=== PATIENT | female | born 1960 | race Caucasian/White ===

== ENCOUNTER 2017-04-16 17:08 | Inpatient (IN) ==
[2017-04-16 18:04] LABS: Basophils # 0.1 10*3/uL (0.0-0.2); Basophils % 0.7 % (0.0-0.8); Eosinophils # 0.2 10*3/uL (0.0-0.87); Eosinophils % 1.9 % (0.00-10.9); Hematocrit 41.6 VOL% (35.7-47.0); Hemoglobin 13.6 GM/DL (12.0-16.0); Immature Granulocytes % 0.4 %; Immature Granulocytes Absolute 0.04 #; Lymphocytes # 0.5 10*3/uL (1.4-4.0); Lymphocytes % 5.8 % (21.3-54.2); Mean Corpuscular HGB Conc 32.7 GM/DL (32-36); Mean Corpuscular Hemoglobin 25 PG (27-34); Mean Corpuscular Volume 77.8 FL (87-102); Mean Platelet Volume 10.3 FL (9.6-12.0); Monocytes # 0.6 10*3/uL (0.11-0.8); Monocytes % 6.5 % (1.7-12.7); Neutrophils # 7.6 10*3/uL (1.4-7.4); Neutrophils % 84.7 % (38.7-73.9); Platelet Count 362 T/CUMM (130-400); Red Blood Count 5.35 MC/CUMM (3.8-5.5); Red Cell Distribution Width 14.5 % (9.3-17.3)
[2017-04-16 18:14] LABS: INR 1.2; PT Patient Result 12.4 SECS; Partial Thromboplastin Time 30.7 SECS (0-40)
--- NOTE | 2017-04-16 18:18 | CT Report ---
CT head/brain wo con INDICATION: Stroke/Hemiparesis The total DLP is 1995 mGy*cm. COMPARISON: None available Technique: Serial axial tomographic images of the brain were obtained without the use of intravenous contrast. Dose reduction: This CT exam was performed using one or more of the following dose reduction techniques: Automated exposure control, automated adjustment of the mA and/or KV according to patient size, or use of iterative reconstruction technique. Findings: Extensive abnormality is evident within the brain parenchyma. There is marked edema throughout the right more so than left cerebral hemisphere with effacement of the sulci. Along the anterior intracranial fossa, there is a large area of focal hypodensity measuring up to 5.2 x 3.2 cm in the axial plane which is concerning for metastatic disease or abscess. This crosses the midline with suggestion of marked right to left midline shift of up to 1.6 cm (axial image 14). There is similar focal hypodensity within the right parietal region measuring up to 5.2 x 2.2 cm in the axial plane which may represent dilatation of the posterior horn of the right lateral ventricle. There is similar hypodensity within this region suspicious for an infiltrating process such as malignancy or sequela of infection. Additionally, there is minimal vague hyperdensity suggested within the right parietal lobe along the periventricular white matter which may represent posttreatment changes or sequela of chronic infection/remote trauma but is otherwise indeterminant. Lack of intravenous contrast limits evaluation. Basilar cisterns are patent. There is no evidence of transforaminal herniation at this time. Mild dilatation of the temporal horns of the lateral ventricles are noted and a degree of subependymal flow of CSF and/or hydrocephalus is suggested. Fourth ventricle is however not dilated. The visualized paranasal sinuses, mastoid air cells and middle ear cavities are predominantly clear. The included orbits and their contents appear within normal limits. The visualized osseous structures and overlying soft tissues of the skull and face demonstrate no acute abnormality. IMPRESSION: Extensive intracranial abnormalities suspicious for intracranial metastatic disease or multifocal intracranial abscesses in this patient with known malignancy. There is marked cerebral edema within both hemispheres, more so on the right, with right to left midline shift due to mass effect. Additional findings are concerning for transependymal flow of CSF. Postcontrast imaging or MRI imaging of the brain without and with contrast may be helpful for further evaluation if clinically indicated. Close clinical and imaging follow-up is recommended. Critical findings discussed with Dr. Gonzalez via telephone at 6:10 PM on the day of the examination. PROCEDURE INTERPRETED AT [facility] DEPARTMENT OF RADIOLOGY Final Report Signed by: Evelio Rodarte
[2017-04-16 18:32] LABS: Alanine Aminotransferase 17 U/L (13-56); Albumin 3.7 G/DL (3.4-5.0); Alkaline Phosphatase 179 U/L (45-117); Aspartate Amino Transferase 34 U/L (0-37); Blood Urea Nitrogen 26 MG/DL (7-18); Calcium 10.8 MG/DL (8.5-10.1); Glucose 126 MG/DL (74-106); Potassium 4.2 MMOL/L (3.5-5.1); Sodium 136 MMOL/L (136-145); Total Protein 8.4 G/DL (6.4-8.3); Troponin I Only < 0.015 NG/ML (0.00-0.045)
--- NOTE | 2017-04-16 18:32 | EKG Report ---
Stationary ECG Study [facility] ER Test Date: 04/16/2017 6:31:43 PM Pat Name: KASSIDY BELTRAN Department: Room: Gender: F Miter Cutter: : 1960 Requested by: Bonny Cartagena Order Number: [id number] Reading MD: SILVANA LEMUS Intervals [place] Rate: 99 P: 5 NH: 126 QRS: 63 QRSD: 97 T: 30 QT: 342 QTc: 398 Interpretive Statements SINUS RHYTHM NONSPECIFIC T-WAVE ABNORMALITY Electronically Signed On 04-16-17 18:51:22 CDT by SILVANA LEMUS [email or web address]
[2017-04-16] MEDS ORDERED: DEXAMETHASONE 4 MG/1 ML VIAL IV STA (19:02)
[2017-04-16] MEDS ORDERED: DEXAMETHASONE 10 MG/1 ML VIAL ONE (19:02)
--- NOTE | 2017-04-16 19:10 | Emergency Department Note ---
I, Lupis Reveles, am scribing for, and in the presence of, Emile Gonzalez MD 19: 03. ILisa Charles R, MD, personally performed the services described in this documentation, ascribed by Lupis Reveles in my presence, and it is both accurate and complete . Arrival - Arrival Chief Complaint: Weakness Stated Complaint: pain,slumped over, poss stroke per pain center ED Nursing Triage Note: PT TO TRIAGE VIA WC WITH C/O HAVING POSSIBLE STROKE . LAST KNOWN WELL TIME AT 1400 TODAY. PT IS HAVING HAVING LEFT SIDED WEAKNESS. CONFUSION. NO FACIAL DROOP NOTED. PT WAS AT PAIN CENTER AND WAS SENT HERE FROM THERE. Mode of Arrival: Wheelchair Limitations: Altered Mental Status Source: Family (son) Time Seen by Provider: 04/16/17 18:21 - History of Present Illness HPI Narrative: Pt is a 56 y/o female who was at Pain Clinic and sent to ED for further evaluation of possible stroke due to left sided weakness and confusion. According to clinic, last nml baseline was around 1400 today. However, pt had CT head today in ED, that shows her lung CA has become metastatic into her brain. Pt states she does have a BENAVIDES in ED but has inappropriate behavior and has great confusion. Son is in ED with states he does have power of civil litigation attorney in pt's affairs. He reports last visit with Dr. Ruano was to undergo tx for her lung CA, but pt denied wanting to and stated she wanted to let "nature take its course." He is still drawn to this idea of pt's, stating he doesn't think she will go along with future treatment. Onset (ago): hour(s) Consistency: constant Severity: severe Severity scale (1-10): 10 Quality: aching Allergies/Adverse Reactions: Allergies Allergy/AdvReac Type Severity Reaction Status Date / Time codeine Allergy Severe RASH Verified 04/16/17 17:29 latex Allergy Severe ITCHING Verified 04/16/17 17:29 morphine Allergy Severe RASH Verified 04/16/17 17:29 aspirin AdvReac Mild Gastrointestinal Verified 04/16/17 17:29 Upset hydrocodone [From Vicoprofen] AdvReac Mild Vomiting Verified 04/16/17 17:29 ibuprofen AdvReac Mild Vomiting Verified 04/16/17 17:29 Home Medications: Home Medications Medication Instructions Recorded Confirmed Type Gabapentin 300 mg PO QID 02/15/15 04/24/16 History Lisinopril 40 mg PO DAILY 02/15/15 04/24/16 History Pantoprazole Tab [Protonix Tab] 40 mg PO DAILY 02/15/15 04/24/16 History Rosuvastatin Calcium [Crestor] 40 mg PO DAILY 02/15/15 04/19/16 History hydroCHLOROthiazide 25 mg PO DIRECTED 02/15/15 04/24/16 History [Hydrochlorothiazide] oxyCODONE/ACETAMINOPHEN 5-325 2 tablet PO Q4H PRN #60 tablet 03/17/15 04/19/16 Rx [Percocet 5-325] Citalopram [CeleXA] 10 mg PO DAILY 10/25/15 04/24/16 History HYDROmorphone TAB [Dilaudid Tab] 2 mg PO BID PRN 10/25/15 04/24/16 History Ipratropium/Albuterol Inhaler 1 puff INH QID 10/25/15 04/24/16 History [Combivent Respimat Inhaler] Potassium Chloride Cap/Tab [K Dur] 20 meq PO BID 10/25/15 04/24/16 History Promethazine Tab [Phenergan Tab] 25 mg PO Q6H PRN 10/25/15 04/19/16 History Review of System - Review of System ROS unobtainable: due to mental status Medical,Surgical,& Family Hx - Medical History Cardio: History of: Hypertension Psychological: History of: Depression Neurology: No history of: Seizures HEENT: History of: Eye Problem (glasses), Dental Problems (dentures upper and lowers) Rheumatology: History of;: Rheumatoid Arthritis Respiratory: History of: Bronchitis, COPD, Pneumonia, Lung Cancer Gastrointestinal: History of: GERD, Gastrointestinal Bleed (at 13 or 14 yrs old) Musculoskeletal: History of: Back/Neck Problems (lumbar4 -5 william in back; 5 yrs ago), Osteoporosis, Musculoskeletal Problems (william left leg JUN 2014) Reproductive: History of: Complication (highh risk) Other: No history of: Anesthesia Reactions - Surgical History Abdominal Surgeries: Surgical HX of: Abdominal Surgery, Colonoscopy, EGD Reproductive Surgeries: Surgical HX of;: Section (2), Gynecologic Surgery, Hysterectomy Orthopedic Surgeries: Surgical HX of;: Implanted Devices (william in back and left leg), Orthopedic Surgery - Family History Family History: Reports;: Family Cancer (paternal greatgrandmother), Family Heart Disease, Family Hypertension (mother brother sisters), Family Stroke ( mother sister) - Social History Smoking Status: Current every day smoker Frequency of Alcohol Use: None Type of Drug Use: None Marital Status: Single Lives With:: Alone Functional capacity: independent ambulation Exam Vital Signs: Vital Signs Temperature 98.6 F 04/16/17 17:36 Pulse Rate 100 H 04/16/17 18:30 Respiratory Rate 22 04/16/17 18:30 Blood Pressure 116/84 04/16/17 18:30 O2 Sat by Pulse Oximetry 97 04/16/17 18:30 - General General appearance: alert, other (altered, temporal wasting) - Head Head exam: Present: atraumatic, normocephalic - Eye Eye exam: Present: PERRL, EOMI, other (sunken orbits, bilaterally) - ENT ENT exam: Present: mucous membranes dry. Absent: mucous membranes moist - Neck Neck exam: Present: full ROM, trachea midline - Chest Chest inspection: Present: symmetric chest wall rise - Respiratory Respiratory exam: Present: rhonchi (scatered rhonchi, bilaterally). Absent: respiratory distress - Cardiovascular Cardiovascular exam: Present: tachycardia, normal heart sounds - Extremities Exam Extremities exam: Present: full ROM. Absent: tenderness, pedal edema - Neurological Exam Neurological exam: Present: alert, CN II-XII intact, other (left side weaker; inappropriate behavior). Absent: oriented X3 - Skin Skin exam: Present: warm, dry Course - Consultations Consultation #1: Spoke to Dr. Ruano relayed information about the CT findings. Spoke to the family about this they wanted comfort care measurement one her admitted for treatment give her IV steroids. Dr. 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
[2017-04-16 19:26] LABS: Apearance,Urine CLOUDY (Clear); Bacteria,Urine Moderate /HPF (Few); Bilirubin,Urine Negative (Negative); Blood, Urine Moderate mg/dL (Negative); Glucose,Urine (UA) Negative (Negative); Ketones,Urine 5 mg/dL (Negative); Mucus,Urine Many /LPF (Occasional); Nitrite,Urine Negative (Negative); Protein,Urine 100 MG/DL; RBC,Urine 9 /HPF (0-4); Urine Color Amber (Yellow); Urine Specific Gravity 1.028 (1.001-1.035); WBC,Urine 12 /HPF (0-6)
[2017-04-16 19:31] LABS: Barbiturates Screen,Urine Negative (Negative); Benzodiazepines Screen,Urine Negative (Negative); Cannabinoid Screen,Urine Negative (Negative); Opiate Screen,Urine Positive (Negative); Phencyclidine Screen,Urine Negative (Negative)
[2017-04-16] MEDS ORDERED: chlorproMAZINE INJ 25 MG in SODIUM CHLORIDE 0.9% 100 ML IV PRN (20:48)
[2017-04-16] MEDS ORDERED: LACTULOSE 20 GM/30 ML UDCUP PO PRN (20:48)
[2017-04-16] MEDS ORDERED: chlorproMAZINE 25 MG TABLET PO PRN (20:48)
[2017-04-16] MEDS ORDERED: ALUMINUM/MAGNES/SIMETH MAX STR 30 ML UDCUP PO PRN (20:48)
[2017-04-16] MEDS ORDERED: chlorproMAZINE INJ 50 MG in SODIUM CHLORIDE 0.9% 100 ML IV PRN (20:48)
[2017-04-16] MEDS ORDERED: ACETAMINOPHEN 325 MG TABLET PO PRN (20:48)
[2017-04-16] MEDS ORDERED: guaiFENesin 200 MG/10 ML UDCUP PO PRN (20:48)
[2017-04-16] MEDS ORDERED: ALPRAZolam 0.25 MG TABLET PO PRN (20:48)
[2017-04-16] MEDS ORDERED: LOPERAMIDE 2 MG CAPSULE PO PRN ×2 (20:48)
[2017-04-16] MEDS ORDERED: BENZTROPINE 2 MG/2 ML AMP IV PRN (20:48)
[2017-04-16] MEDS ORDERED: MYLANTA/LIDO VISC 2:1 300 ML BOTTLE SWISH/SWAL PRN (20:48)
[2017-04-16] MEDS ORDERED: diphenhydrAMINE CAP 25 MG CAPSULE PO PRN (20:48)
[2017-04-16] MEDS ORDERED: MYLANTA/LIDO VISC 2:1 300 ML BOTTLE SWISH/SPIT PRN (20:48)
[2017-04-16] MEDS ORDERED: PROMETHAZINE INJ 25 MG in SODIUM CHLORIDE 0.9% 50 ML IV PRN (20:48)
[2017-04-16] MEDS ORDERED: MAGNESIUM HYDROXIDE SUSP 30 ML UDCUP PO PRN (20:48)
[2017-04-16] MEDS ORDERED: TEMAZEPAM 7.5 MG CAPSULE PO PRN (20:48)
[2017-04-16] MEDS ORDERED: ALBUTEROL/IPRATROPIUM 3 ML NEB RESP TX PRN (20:48)
[2017-04-16] MEDS ORDERED: ONDANSETRON 4 MG/2 ML VIAL IV PRN (20:48)
[2017-04-16 21:00] LABS: Basophils # 0.1 10*3/uL (0.0-0.2); Basophils % 0.6 % (0.0-0.8); Eosinophils # 0.2 10*3/uL (0.0-0.87); Eosinophils % 1.7 % (0.00-10.9); Hematocrit 37.3 VOL% (35.7-47.0); Hemoglobin 12.1 GM/DL (12.0-16.0); Immature Granulocytes % 0.3 %; Immature Granulocytes Absolute 0.03 #; Lymphocytes # 0.4 10*3/uL (1.4-4.0); Lymphocytes % 4.2 % (21.3-54.2); Mean Corpuscular HGB Conc 32.4 GM/DL (32-36); Mean Corpuscular Hemoglobin 26 PG (27-34); Mean Corpuscular Volume 78.5 FL (87-102); Mean Platelet Volume 9.6 FL (9.6-12.0); Monocytes # 0.4 10*3/uL (0.11-0.8); Monocytes % 4.8 % (1.7-12.7); Neutrophils # 7.6 10*3/uL (1.4-7.4); Neutrophils % 88.4 % (38.7-73.9); Platelet Count 272 T/CUMM (130-400); Red Blood Count 4.75 MC/CUMM (3.8-5.5); Red Cell Distribution Width 14.4 % (9.3-17.3); White Blood Count 8.6 T/CUMM (4-12)
[2017-04-16 21:18] LABS: Alanine Aminotransferase 15 U/L (13-56); Albumin 3.1 G/DL (3.4-5.0); Alkaline Phosphatase 142 U/L (45-117); Aspartate Amino Transferase 32 U/L (0-37); Bilirubin,Total < 0.39 MG/DL (0.2-1.0); Blood Urea Nitrogen 26 MG/DL (7-18); Calcium 9.8 MG/DL (8.5-10.1); Glucose 115 MG/DL (74-106); Magnesium 2.1 MG/DL (1.8-2.4); Osmolality,Calculated 278.8 MOS/KG (273-304); Potassium 4.3 MMOL/L (3.5-5.1); Sodium 137 MMOL/L (136-145); Uric Acid 3.7 MG/DL (2.6-6.0)
[2017-04-16 21:25] LABS: Eosinophils 2 % (0-10); Lymphocytes 8 % (20-55); Platelet Estimate Normal; Segmented Neutrophils 86 % (50-85); Total Cells Counted 100
[2017-04-16] MEDS: SODIUM CHLORIDE 0.9% 1,000 ML IV SCH (21:43)
[2017-04-17] MEDS: traMADol 50 MG TABLET PO PRN ×2 (04:31→15:13)
--- NOTE | 2017-04-17 07:27 | Oncology History&Physical ---
History of Present Illness Chief complaint: Brain metastases History of present illness: Ms. Edwards is an unfortunate 56 year old female with newly diagnosed brain metastases from squamous cell carcinoma of the lung. Up until now she had stage IIIb adenocarcinoma of the lung and had responded well to chemotherapy. Ms. 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 She was initially diagnosed as having lung cancer March 02, 2015. It was not resectable. She was treated with chemotherapy with good response using Abraxane and carboplatin. Her last course of chemotherapy was given August 25, 2015 and it consisted of Abraxane and carboplatin and it was day 8 of course #8. The Abraxane dose was 150 mg on day 1 and 8 and the carboplatin dose was 350 mg on day 1 of each course. She was treated with radiation therapy to the primary tumor in her left upper lobe and she completed it August 11, 2016. It was initiated May 17, 2016. She would qualify for Opdivo or Tecentric 1200 mg every 3 weeks but she also would qualify at this point for Alimta, carboplatin and Keytruda. Her last PET scan was December 18, 2016 and it did not demonstrate any tumor beyond the thorax. She has been having a lot of back and leg pain from previous injuries and has been seen at the pain clinic and I thought she was excessively sedated but it turns out that a lot of her lethargy was due to the new brain metastases. She has more than one brain metastasis. Past medical history: Allergies: She is allergic to ibuprofen, morphine, hydrocodone, aspirin and codeine. Her past medical history is positive for severe COPD as well as for back pain and arthritis, hypertension, diabetes mellitus, hyperlipidemia, depression, GERD , anxiety, osteoporosis and asthma. Family history is positive for hypertension in her brother, stroke and hypertension in her mother and hypertension, blood cancer and stroke and a sister. Social history she has been a heavy smoker in the past and a light smoker more recently. She does not use alcohol. ROS Gen.: Positive for increasing fatigue, generalized weakness and malaise. Eyes: No history of chronic disease, infections or visual loss. ENT: No history of chronic infections, epistaxis, chronic sore throat Lungs: Positive for severe COPD as well as for asthma and bronchospasm and painful respiration. Cardiovascular: No history of angina, coronary artery disease, congestive heart failure, cardiovascular surgery or DVT/VTE GI: No history of upper or lower GI bleeding, melena, dysphagia, odynophagia, liver disease, gallbladder disease or pancreatic disease. : No history of kidney stones, chronic kidney infections or hematuria. Musculoskeletal: No history of chronic bone or joint pain or focal muscle atrophy or bone or joint deformity. Neurologic: Positive for increasing memory impairment. She has been depressed and emotionally labile no history of seizures, convulsions or paralysis. Psychiatric: In the past. More recently she has had difficulty concentrating and difficulty communicating and has dysarthria. No history of chronic psychiatric illness or psychiatric medications. Lymphatic: No history of significant or long-term lymphadenopathy Hematologic: No history of anemia, bleeding disorders or blood dyscrasias or long-term elevation or depression white cell count or petechiae. Skin: No history of chronic skin infections or rashes or significant skin lesions. Physical examination: General: The patient is acutely ill. She is actually having a lot less difficulty with mentation and communication after being given large doses of corticosteroids. Eyes: Normal lids and conjunctivae. ENT: Poor dentition. Her oral mucosa and pharynx are normal. Her hearing is normal. Neck: Her trachea is midline and she has no neck masses. Lungs: Breath sounds are coarse throughout both lung henriquez but I hear few wheezes and no rubs, rales or rhonchi and she has a prolonged expiratory phase of respiration. No chest wall tenderness. Cardiovascular: Her heart rhythm is regular without murmur, gallop or rub. There is no jugular venous distention, clubbing, cyanosis or edema. Abdomen: She has no abdominal masses, organomegaly, distention, tenderness or ascites. Musculoskeletal: She has generalized muscle wasting and is generally weak. There is no focal muscle atrophy or bone or joint deformity. Neurologic: She has no focal neurologic deficits. Cranial nerves II through XII are intact. She may actually have a field cut to the left. Psychiatric: The patient is currently oriented to time, place, person and situation. Her affect is somewhat flat. Breasts: No breast masses or abnormalities by inspection. Nodes: No submandibular, cervical, supraclavicular or axillary adenopathy. Impression: Newly diagnosed brain metastases in a patient with past history of stage IIIb lung cancer: COPD: Emaciation, cachexia and malnutrition: Acute dehydration with elevated BUN and creatinine: I have discussed CODE STATUS with the patient and I have discussed hospice. The patient wants to consider chemotherapy and radiation so I am consulting Dr. Braxton King and will consider using Keytruda, carboplatin and Alimta. I have ordered B12 and folic acid on her. We will started today. Home Medications Medication Instructions Recorded Confirmed Type Gabapentin 300 mg PO QID 02/15/15 04/24/16 History Lisinopril 40 mg PO DAILY 02/15/15 04/24/16 History Pantoprazole Tab [Protonix Tab] 40 mg PO DAILY 02/15/15 04/24/16 History Rosuvastatin Calcium [Crestor] 40 mg PO DAILY 02/15/15 04/19/16 History hydroCHLOROthiazide 25 mg PO DIRECTED 02/15/15 04/24/16 History [Hydrochlorothiazide] oxyCODONE/ACETAMINOPHEN 5-325 2 tablet PO Q4H PRN #60 tablet 03/17/15 04/19/16 Rx [Percocet 5-325] Citalopram [CeleXA] 10 mg PO DAILY 10/25/15 04/24/16 History HYDROmorphone TAB [Dilaudid Tab] 2 mg PO BID PRN 10/25/15 04/24/16 History Ipratropium/Albuterol Inhaler 1 puff INH QID 10/25/15 04/24/16 History [Combivent Respimat Inhaler] Potassium Chloride Cap/Tab [K Dur] 20 meq PO BID 10/25/15 04/24/16 History Promethazine Tab [Phenergan Tab] 25 mg PO Q6H PRN 10/25/15 04/19/16 History Allergies Allergy/AdvReac Type Severity Reaction Status Date / Time codeine Allergy Severe RASH Verified 04/16/17 17:29 latex Allergy Severe ITCHING Verified 04/16/17 17:29 morphine Allergy Severe RASH Verified 04/16/17 17:29 aspirin AdvReac Mild Gastrointestinal Verified 04/16/17 17:29 Upset hydrocodone [From Vicoprofen] AdvReac Mild Vomiting Verified 04/16/17 17:29 ibuprofen AdvReac Mild Vomiting Verified 04/16/17 17:29 Medical,Surgical,& Family Hx - Medical History Cardio: History of: Hypertension Psychological: History of: Depression Neurology: No history of: Seizures HEENT: History of: Eye Problem (glasses), Dental Problems (dentures upper and lowers) Rheumatology: History of;: Rheumatoid Arthritis Respiratory: History of: Bronchitis, COPD, Pneumonia, Lung Cancer Gastrointestinal: History of: GERD, Gastrointestinal Bleed (at 13 or 14 yrs old) Musculoskeletal: History of: Back/Neck Problems (lumbar4 -5 william in back; 5 yrs ago), Osteoporosis, Musculoskeletal Problems (william left leg JUN 2014) Reproductive: History of: Complication (high risk) Other: History of: Cancer (metastatic lung stage 4) No history of: Anesthesia Reactions - Surgical History Abdominal Surgeries: Surgical HX of: Abdominal Surgery, Colonoscopy, EGD Reproductive Surgeries: Surgical HX of;: Section (2), Gynecologic Surgery, Hysterectomy Orthopedic Surgeries: Surgical HX of;: Implanted Devices (william in back and left leg), Orthopedic Surgery - Family History Family History: Reports;: Family Cancer (paternal greatgrandmother), Family Heart Disease, Family Hypertension (mother brother sisters), Family Stroke ( mother sister) - Social History Smoking Status: Current every day smoker Frequency of Alcohol Use: None Type of Drug Use: None Exam - Constitutional Vitals: Period Temp Pulse Resp BP Sys/Ball Pulse Ox Last 24 Hr 97.3 F-98.6 F 69-115 18-28 98-134/59-84 93-100 Results - Labs CBC & BMP: 04/16/17 20:51 04/16/17 20:51 Quality Measures - Stroke Onset of Symptoms Date: 04/16/17 Onset of Symptoms Time: 14:00 Presenting Symptoms: Left hemiparesis Symptom Onset Unknown: No
[2017-04-17] MEDS ORDERED: CYANOCOBALAMIN 1000 MCG/1 ML VIAL IM ONE (08:21)
[2017-04-17] MEDS ORDERED: DEXAMETHASONE 10 MG/1 ML VIAL IV SCH (09:00)
[2017-04-17] MEDS: FOLIC ACID 1 MG TABLET PO SCH (09:26)
[2017-04-17] MEDS: DEXAMETHASONE INJ 40 MG in SODIUM CHLORIDE 0.9% 50 ML IV SCH (09:27)
[2017-04-17] MEDS: PANTOPRAZOLE 40 MG TABLET PO SCH (09:27)
[2017-04-17] MEDS: oxyCODONE/ACETAMINOPHEN 5-325 MG TABLET PO PRN (10:37)
[2017-04-17] MEDS: SODIUM CHLORIDE 0.9% 1,000 ML IV SCH (10:38)
[2017-04-17] MEDS ORDERED: BACLOFEN 10 MG TABLET PO PRN (12:24)
[2017-04-17] MEDS ORDERED: oxyCODONE/ACETAMINOPHEN 5-325 MG TABLET PO PRN (12:24)
[2017-04-17] MEDS ORDERED: HYDROmorphone 2 MG TABLET PO PRN (12:24)
[2017-04-17] MEDS ORDERED: PROMETHAZINE 25 MG TABLET PO PRN (12:24)
[2017-04-17] MEDS ORDERED: PANTOPRAZOLE 40 MG TABLET PO SCH (12:30)
[2017-04-17] MEDS: hydroCHLOROthiazide 25 MG TABLET PO SCH (15:12)
[2017-04-17] MEDS: POTASSIUM CHLORIDE 20 MEQ TABLET PO SCH ×2 (15:12→20:50)
[2017-04-17] MEDS: GABAPENTIN 300 MG CAPSULE PO SCH ×3 (15:15→20:50)
[2017-04-17] MEDS: ALBUTEROL/IPRATROPIUM 3 ML NEB RESP TX SCH ×2 (17:53→19:01)
[2017-04-17] MEDS: CITALOPRAM 20 MG TABLET PO SCH (20:50)
[2017-04-18] MEDS: SODIUM CHLORIDE 0.9% 1,000 ML IV SCH (02:04)
[2017-04-18] MEDS: ALBUTEROL/IPRATROPIUM 3 ML NEB RESP TX SCH ×4 (07:06→19:27)
--- NOTE | 2017-04-18 07:53 | Oncology Progress Note ---
Oncology Subjective PN Interval history: Abrupt change in neurologic status due to newly diagnosed brain metastases: She has multiple brain metastases. I consulted radiation oncology. We need to discuss the patient's condition with her son but he is working and has not been available. We will continue to try to contact him. I think he favored hospice and I can understand why. He is having to keep his mother and I do not think he is going to be able to do this. Radiation oncology has been consulted. She complains of headaches today. I am checking her pain medications and will be certain to include parenteral narcotics for pain. Past history of stage IIIb squamous cell lung cancer: This is now become stage IV lung cancer which qualifies her for Alimta, carboplatin and Keytruda. She has been started on B12 and folic acid since we are considering that possibility. COPD: Her COPD is relatively stable. Emaciation, cachexia and malnutrition: Her appetite is poor. Acute dehydration with elevated BUN and creatinine: I have just ordered repeat lab work today and I am going to go ahead and adjust her IV fluid. Exam - Constitutional Vitals: Period Temp Pulse Resp BP Sys/Ball Pulse Ox Last 24 Hr 96.3 F-98.7 F 62-72 16-20 103-138/59-73 96-99 Results - Labs CBC & BMP: 04/16/17 20:51 04/16/17 20:51 Quality Measures - Stroke Onset of Symptoms Date: 04/16/17 Onset of Symptoms Time: 14:00 Presenting Symptoms: Left hemiparesis Symptom Onset Unknown: No
[2017-04-18] MEDS ORDERED: HYDROmorphone 2 MG/1 ML VIAL IV PRN (08:25)
[2017-04-18 08:27] LABS: Basophils % 0.1 % (0.0-0.8); Eosinophils # 0.1 10*3/uL (0.0-0.87); Eosinophils % 0.9 % (0.00-10.9); Hematocrit 34.6 VOL% (35.7-47.0); Hemoglobin 11.6 GM/DL (12.0-16.0); Immature Granulocytes % 0.6 %; Immature Granulocytes Absolute 0.06 #; Lymphocytes # 0.7 10*3/uL (1.4-4.0); Lymphocytes % 6.8 % (21.3-54.2); Mean Corpuscular HGB Conc 33.5 GM/DL (32-36); Mean Corpuscular Hemoglobin 26 PG (27-34); Mean Corpuscular Volume 77.8 FL (87-102); Mean Platelet Volume 10.2 FL (9.6-12.0); Monocytes # 0.7 10*3/uL (0.11-0.8); Monocytes % 6.7 % (1.7-12.7); Neutrophils # 8.3 10*3/uL (1.4-7.4); Neutrophils % 84.9 % (38.7-73.9); Platelet Count 294 T/CUMM (130-400); Red Blood Count 4.45 MC/CUMM (3.8-5.5); Red Cell Distribution Width 14.1 % (9.3-17.3); White Blood Count 9.8 T/CUMM (4-12)
[2017-04-18] MEDS: GABAPENTIN 300 MG CAPSULE PO SCH ×5 (09:03→20:24)
[2017-04-18] MEDS: PANTOPRAZOLE 40 MG TABLET PO SCH (09:03)
[2017-04-18] MEDS: POTASSIUM CHLORIDE 20 MEQ TABLET PO SCH ×2 (09:03→20:24)
[2017-04-18] MEDS: FOLIC ACID 1 MG TABLET PO SCH (09:03)
[2017-04-18 09:08] LABS: Albumin 2.9 G/DL (3.4-5.0); Bilirubin,Total 0.5 MG/DL (0.2-1.0); Calcium 9.6 MG/DL (8.5-10.1); Osmolality,Calculated 274.1 MOS/KG (273-304); Potassium 3.9 MMOL/L (3.5-5.1); Total Protein 6.6 G/DL (6.4-8.3)
[2017-04-18] MEDS: LISINOPRIL 20 MG TABLET PO SCH (09:22)
[2017-04-18] MEDS: DEXAMETHASONE INJ 40 MG in SODIUM CHLORIDE 0.9% 50 ML IV SCH (10:08)
[2017-04-18] MEDS: oxyCODONE/ACETAMINOPHEN 5-325 MG TABLET PO PRN (10:29)
[2017-04-18] MEDS: DEXT 5% NACL 0.45% KCL 20 MEQ 20 MEQ/1,000 ML BAG IV SCH (11:04)
[2017-04-18] MEDS ORDERED: SODIUM CHLORIDE 0.9% 1,000 ML IV SCH (13:30)
--- NOTE | 2017-04-18 13:59 | CT Report ---
CT head/brain wo con Indication: Decreased LOC Comparison: CT brain dated April 16, 2017 Technique: Multiple axial tomographic images of the brain were obtained without the use of intravenous contrast. Findings: Previously described prominent cerebral parenchymal lesions which are predominantly right-sided again demonstrated highly suspicious for metastatic disease. Intracerebral abscesses may also have similar appearance. There is again significant leftward midline shift measuring approximately 1.4 cm. Transependymal flow of CSF again suspected. The visualized paranasal sinuses and bilateral mastoid air cells are predominantly clear. IMPRESSION: No significant change from April 16, 2017. The CT exam was performed using one or more of the following dose reduction techniques: Automated exposure control, adjustment of the mA and/or kV according to patient size, or use of iterative reconstruction technique. PROCEDURE INTERPRETED AT [facility] DEPARTMENT OF RADIOLOGY Final Report Signed by: Dr Bipin Graf
[2017-04-18 14:22] LABS: Basophils % 0.1 % (0.0-0.8); Eosinophils % 0.1 % (0.00-10.9); Hematocrit 38.3 VOL% (35.7-47.0); Hemoglobin 12.9 GM/DL (12.0-16.0); Immature Granulocytes % 1.3 %; Immature Granulocytes Absolute 0.29 #; Lymphocytes # 0.3 10*3/uL (1.4-4.0); Lymphocytes % 1.5 % (21.3-54.2); Mean Corpuscular HGB Conc 33.7 GM/DL (32-36); Mean Corpuscular Hemoglobin 26 PG (27-34); Mean Corpuscular Volume 77.1 FL (87-102); Mean Platelet Volume 10.1 FL (9.6-12.0); Monocytes # 0.5 10*3/uL (0.11-0.8); Monocytes % 2.1 % (1.7-12.7); Neutrophils % 94.9 % (38.7-73.9); Platelet Count 434 T/CUMM (130-400); Red Blood Count 4.97 MC/CUMM (3.8-5.5); Red Cell Distribution Width 14.2 % (9.3-17.3); White Blood Count 22.1 T/CUMM (4-12)
[2017-04-18 14:50] LABS: INR 1.1; Partial Thromboplastin Time 26.6 SECS (0-40)
[2017-04-18 14:52] LABS: Albumin 3.1 G/DL (3.4-5.0); Bilirubin,Total 0.9 MG/DL (0.2-1.0); Calcium 9.4 MG/DL (8.5-10.1); Osmolality,Calculated 271.7 MOS/KG (273-304); Potassium 4.1 MMOL/L (3.5-5.1); Total Protein 6.9 G/DL (6.4-8.3)
[2017-04-18 15:15] LABS: Lymphocytes 1 % (20-55); Microcytosis Slight; Platelet Estimate Increased; Segmented Neutrophils 95 % (50-85); Total Cells Counted 100
[2017-04-18 16:00] LABS: Apearance,Urine CLEAR (Clear); Bilirubin,Urine Negative (Negative); Blood, Urine Small mg/dL (Negative); Glucose,Urine (UA) 50 mg/dL (Negative); Ketones,Urine 5 mg/dL (Negative); Mucus,Urine Occasional /LPF (Occasional); Nitrite,Urine Negative (Negative); Protein,Urine Negative; RBC,Urine 4 /HPF (0-4); Squamous Epithelial Cell,Urine Occasional /HPF (0-10); Urine Color Yellow (Yellow); Urine Specific Gravity 1.012 (1.001-1.035); Urine Urobilinogen < 2.0 EU/DL (0.2-1.0); WBC,Urine 2 /HPF (0-6)
[2017-04-18] MEDS: CITALOPRAM 20 MG TABLET PO SCH (20:24)
[2017-04-19] MEDS: DEXT 5% NACL 0.45% KCL 20 MEQ 20 MEQ/1,000 ML BAG IV SCH (00:22)
[2017-04-19 04:50] LABS: Basophils % 0.1 % (0.0-0.8); Hematocrit 41.2 VOL% (35.7-47.0); Hemoglobin 13.3 GM/DL (12.0-16.0); Immature Granulocytes % 1.3 %; Immature Granulocytes Absolute 0.33 #; Lymphocytes # 0.9 10*3/uL (1.4-4.0); Lymphocytes % 3.4 % (21.3-54.2); Mean Corpuscular HGB Conc 32.3 GM/DL (32-36); Mean Corpuscular Hemoglobin 25 PG (27-34); Mean Corpuscular Volume 78.6 FL (87-102); Mean Platelet Volume 10.2 FL (9.6-12.0); Monocytes # 2.5 10*3/uL (0.11-0.8); Monocytes % 9.4 % (1.7-12.7); Neutrophils # 22.4 10*3/uL (1.4-7.4); Neutrophils % 85.8 % (38.7-73.9); Platelet Count 470 T/CUMM (130-400); Red Blood Count 5.24 MC/CUMM (3.8-5.5); Red Cell Distribution Width 14.5 % (9.3-17.3); White Blood Count 26.1 T/CUMM (4-12)
[2017-04-19 05:05] LABS: Albumin 2.8 G/DL (3.4-5.0); Bilirubin,Total 0.4 MG/DL (0.2-1.0); Calcium 9.4 MG/DL (8.5-10.1); Osmolality,Calculated 273.9 MOS/KG (273-304); Potassium 4.8 MMOL/L (3.5-5.1); Total Protein 6.5 G/DL (6.4-8.3)
[2017-04-19 05:15] LABS: Band Neutrophils 1 % (0-10); Lymphocytes 6 % (20-55); Platelet Estimate Normal; Segmented Neutrophils 78 % (50-85); Total Cells Counted 100
[2017-04-19] MEDS: ALBUTEROL/IPRATROPIUM 3 ML NEB RESP TX SCH ×2 (07:13→11:25)
--- NOTE | 2017-04-19 07:46 | Oncology Progress Note ---
Oncology Subjective PN Interval history: This morning, Ms. Edwards is comatose. Her pupils are dilated and fixed. She has lung cancer with brain metastases and her neurologic status has deteriorated over the last 24 hours. I have discussed all of this with her son and I have explained to him that we have done everything reasonable. We will keep her comfortable. She is not likely to survive the day. She has no neurologic responses of any type other than that she is continuing to breathe. She is in a deep coma. Exam - Constitutional Vitals: Period Temp Pulse Resp BP Sys/Ball Pulse Ox Last 24 Hr 96.6 F-98.4 F 65-116 14-22 112-154/62-91 92-100 Results - Labs CBC & BMP: 04/19/17 04:00 04/19/17 04:00 Quality Measures - Stroke Onset of Symptoms Date: 04/16/17 Onset of Symptoms Time: 14:00 Presenting Symptoms: Left hemiparesis Symptom Onset Unknown: No
[2017-04-19 09:12] VITALS: BP 100/56
[2017-04-19] MEDS: FOLIC ACID 1 MG TABLET PO SCH (11:42)
[2017-04-19] MEDS: GABAPENTIN 300 MG CAPSULE PO SCH ×2 (11:42→14:11)
[2017-04-19] MEDS: DEXAMETHASONE INJ 40 MG in SODIUM CHLORIDE 0.9% 50 ML IV SCH (11:42)
[2017-04-19] MEDS: hydroCHLOROthiazide 25 MG TABLET PO SCH (11:42)
[2017-04-19] MEDS: LISINOPRIL 20 MG TABLET PO SCH (11:42)
[2017-04-19] MEDS: POTASSIUM CHLORIDE 20 MEQ TABLET PO SCH (11:42)
[2017-04-19] MEDS: PANTOPRAZOLE 40 MG TABLET PO SCH (11:42)
--- NOTE | 2017-04-20 09:15 | Discharge Summary ---
Hospital Course - Hospital Course Hospital Course: Diagnoses: Abrupt change in sensorium. 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 It was stage IIIb at the time of diagnosis. She had been off chemotherapy for an extended period of time, greater than 9 months, if my memory serves me. She was admitted with abrupt change in sensorium, beginning only a few days before admission and without focal neurologic deficit and also without headache and while still in the emergency room she was diagnosed as having brain metastases from her lung cancer. We treated her with IV corticosteroids and her sensorium improved. We consulted radiation oncology but the patient's response to the corticosteroids was only transient and she lapsed back into a coma. On the morning of April 19, her pupils were dilated and fixed and her respirations slowed and she ultimately as result of the brain metastases from her squamous cell lung cancer. Discharge Plan - Discharge Medications No Action Pantoprazole Tab [Protonix Tab] 40 mg PO DAILY Lisinopril 40 mg PO DAILY hydroCHLOROthiazide [Hydrochlorothiazide] 25 mg PO QOTHER DAY Rosuvastatin Calcium [Crestor] 40 mg PO DAILY Gabapentin 300 mg PO QID Potassium Chloride Cap/Tab [K Dur] 20 meq PO BID HYDROmorphone TAB [Dilaudid Tab] 2 mg PO BID PRN PRN Reason: Pain Citalopram [CeleXA] 20 mg PO BEDTIME Promethazine Tab [Phenergan Tab] 25 mg PO Q6H PRN PRN Reason: Nausea Ipratropium/Albuterol Inhaler [Combivent Respimat Inhaler] 1 puff INH QID oxyCODONE/ACETAMINOPHEN 5-325 [Percocet 5-325] 2 tablet PO Q6H PRN PRN Reason: Pain Moderate (4-7) Baclofen Tab [Lioresal] 10 mg PO DAILY PRN PRN Reason: Muscle Spasm - Follow Up or Referral - Forms/Instructions Additional Discharge Instructions: This patient while she was still hospitalized, as result of her brain metastases. Exam - Constitutional Vitals: Period Temp Pulse Resp BP Sys/Ball Pulse Ox Last 24 Hr 141 30 DS: Provider Date of admission: 04/17/17 09:34 Primary care physician: . No PCP Attending physician on admission: Alberto Ruano MD Consults: 04/16/17 20:48 Consult to Case Mgmt/Social Srvs [CONS] Routine Reason for Case Mgmt/Social Srvs: Rehab Hospice Referral 04/17/17 16:19 Consult to Physician [CONS] Routine Comment: new dx brain mets. Consulting Provider: Omer King Consulting Provider Notified: Yes When should Consulting Provider be notified: Now Consult to Specialist Group: Radiation Oncology When should Consulting Provider be notified: Now Person Notified: [email or web address] Date Notified: 04/18/17 Time Notified: 08:36 Discharging clinician: Alberto Ruano MD
== END 2017-04-19 12:00 | disposition expired | DRG 54 ==
LOC: N.ED 17:08 → N.EDINP 17:08 → N.4E 19:41
PROVIDERS: ADMIT Specialist; ATTEND Specialist